=== PATIENT | female | born 1965 | race Caucasian/White ===

== ENCOUNTER 2020-07-17 16:01 | Inpatient (IN) | payer OTHER ==
[~2020-07-17] VITALS: Ht 167.6 cm; Wt 66.2 kg
[2020-07-17 16:46] LABS: BASOPHILS % (AUTO) 0 % (0-1); EOSINOPHILS % (AUTO) 0 % (1-7); LYMPHOCYTES % (AUTO) 19 % (22-44); MEAN CORPUSCULAR HEMOGLOBIN 30.8 pg (27.0-34.8); MEAN CORPUSCULAR HGB CONC 34.2 g/dL (32.4-35.8); MEAN PLATELET VOLUME 9.4 fL (7.4-10.4); MONOCYTES % (AUTO) 12 % (2-9); NEUTROPHILS % (AUTO) 69 % (42-75); PLATELET COUNT 153 x10^3/uL (130-400); RED BLOOD COUNT 5.07 x10^6/uL (3.82-5.3); RED CELL DISTRIBUTION WIDTH 13.6 % (9.6-15.2)
[2020-07-17 16:49] LABS: ALBUMIN 3.2 g/dL (3.4-5.0); ANION GAP 10 mmol/L (5-15); CALCIUM 8.3 mg/dL (8.5-10.1); CHLORIDE 101 mmol/L (98-107)
[2020-07-17 16:52] LABS: MD NO
[2020-07-17 16:53] LABS: ALANINE AMINOTRANSFERASE 36 U/L (12-78); ALKALINE PHOSPHATASE 89 U/L (45-117); BILIRUBIN,TOTAL 0.9 mg/dL (0.2-1.0); CREATININE 0.85 mg/dL (0.55-1.02); TOTAL PROTEIN 7.4 g/dL (6.4-8.2)
[2020-07-17] MEDS ORDERED: ACETAMINOPHEN 500 MG TABLET PO ONE (17:00)
[2020-07-17] MEDS ORDERED: SODIUM CHLORIDE 0.9% 1,000ML IVBOLUS ONE (17:00)
--- NOTE | 2020-07-17 17:22 | NUR ---
DR GARCIA HAS SEEN PATIENT.
[2020-07-17] MEDS ORDERED: ONDANSETRON 2MG/ML, 2ML ONE (17:23)
[2020-07-17] MEDS ORDERED: ESCI10TA10 PO (17:27)
[2020-07-17] MEDS ORDERED: ESCI10TA PO (17:28)
[2020-07-17] MEDS ORDERED: ONDANSETRON 2MG/ML, 2ML IVPush ONE (17:30)
[2020-07-17] MEDS ORDERED: FAMOTIDINE 20 MG/2 ML IV ONE (17:30)
[2020-07-17] MEDS ORDERED: MAALOX/HYOSCYAMINE/LIDOCAINE 45 ML BTL PO ONE (17:30)
--- NOTE | 2020-07-17 17:30 | NUR ---
PT REPORTS HER FRIEND IS POSITIVE FOR COVID, AND SHE HAD A TEST DONE BUT DOES NOT HAVE THE RESULTS BACK. PT REPORTS CENTER ABD PAIN WITH N/V. VS STABLE. CALL LIGHT IN PLACE. WILL CONTINUE TO MONITOR.
[2020-07-17] MEDS ORDERED: FAMOTIDINE 20 MG/2 ML ONE (17:34)
[2020-07-17] MEDS ORDERED: ACETAMINOPHEN 500 MG TABLET ONE ×2 (17:43→17:45)
[2020-07-17] MEDS ORDERED: METOCLOPRAMIDE 5 MG/ML, 2ML ONE (17:59)
[2020-07-17] MEDS ORDERED: DEXAMETHASONE 4 MG TABLET PO ONE (18:00)
[2020-07-17] MEDS ORDERED: METOCLOPRAMIDE 5 MG/ML, 2ML IVPush ONE (18:00)
--- NOTE | 2020-07-17 18:02 | NUR ---
PT STILL HAS SOME NAUSEA. DR GARCIA AWARE. PT GIVEN REGLAN PER
[2020-07-17] MEDS ORDERED: DEXAMETHASONE 4 MG TABLET ONE (18:36)
[2020-07-17] MEDS ORDERED: CEFTRIAXONE PMX 1GM/50ML 50 ML IVPB ONE (19:00)
[2020-07-17] MEDS ORDERED: DOXYCYCLINE 100MG TABLET PO ONE (19:00)
--- NOTE | 2020-07-17 19:04 | NUR ---
REPORT GIVEN TO DWAIN IBARRA
[2020-07-17] MEDS ORDERED: CEFTRIAXONE PMX 1GM/50ML 50 ML ONE (19:06)
[2020-07-17 19:21] LABS: D-DIMER (DIC) 0.78 ug/mlFEU (0.00-0.52)
[2020-07-17 19:23] LABS: C-REACTIVE PROTEIN, QUANT 6.09 mg/dL (0.02-0.49)
[2020-07-17] MEDS ORDERED: DOXYCYCLINE 100MG TABLET ONE (19:29)
--- NOTE | 2020-07-17 19:32 | NUR ---
ABX HUNG AFTER BLOOD CULTURES DRAWN
[2020-07-17] MEDS ORDERED: ONDANSETRON 2MG/ML, 2ML IVPush PRN (20:30)
[2020-07-17] MEDS ORDERED: ENALAPRILAT 1.25 MG/ML, 2ML IVPush PRN (20:30)
[2020-07-17] MEDS ORDERED: DOCUSATE 100 MG CAPSULE PO PRN (20:30)
[2020-07-17] MEDS ORDERED: GUAIFENESIN/DM 200-20MG, 10ML UDC PO PRN (20:30)
--- NOTE | 2020-07-17 21:30 | NUR ---
URINE COLLECTED, PT IN [facility], AWAITING HOSPITAL BED, NO OTHER NEEDS AT THIS TIME
[2020-07-17] MEDS ORDERED: HEPARIN 5,000 UNITS/ML, 1ML ONE (21:48)
[2020-07-17 21:55] LABS: MICROSCOPIC INDICATED
[2020-07-17] MEDS: HEPARIN 5,000 UNITS/ML, 1ML SQ SCH (22:07)
--- NOTE | 2020-07-17 23:35 | NUR ---
PT RESTING IN [facility], ORDERED HOSPITAL BED, PT STATES NO NEEDS AT THIS TIME, VSS
[2020-07-18] MEDS ORDERED: SODIUM CHLORIDE 0.9% 1,000ML IVBOLUS ONE (00:30)
--- NOTE | 2020-07-18 00:45 | NUR ---
PT HAVING HYPOTENTION, SEE VITALS DOCUMENTATION, CHECKED MULTIPLE TIMES, PT DENIES LIGHTHEADEDNESS/DIZZINESS, AND STATES FEELING JUST TIRED. DR. DELGADO NOTIFIED, PT MEETS SEPISI CRITERIA. PT GIVEN MONOTHERAPY ABX AFTER BLOOD CULTURES AT 1933. HYPOTENTION FIRST FOUND AT 0014, PER MD GIVE BOLUS PER SEPSIS CRIETERIA BUT SUBRACT BOLUS GIVEN EARLIER. PT TO RECIEVE 2463 ML TOTAL MINUS 1,000 ML GIVEN EARLIER. ORDER FOR 1,500 ML BOLUS PLACED.
--- NOTE | 2020-07-18 01:59 | NUR ---
PT PLACED ON HOSPITAL BED, BOLUS COMPLETED, BLOOD PRESSURE CHARTED. NO OTHER NEEDS AT THIS TIME
--- NOTE | 2020-07-18 03:40 | NUR ---
PT SLEEPING, RESPIRATIONS EVEN/UNLABORED, MONITORS IN PLACE, CALL LIGHT WITHIN REACH
--- NOTE | 2020-07-18 04:54 | NUR ---
PT SLEEPING, RESP EVEN/UNLABORED, MONITORS IN PLACE. CALL LIGHT WITHIN REACH
[2020-07-18 05:31] LABS: BASOPHILS % (AUTO) 0 % (0-1); EOSINOPHILS % (AUTO) 0 % (1-7); LYMPHOCYTES % (AUTO) 17 % (22-44); MEAN CORPUSCULAR HEMOGLOBIN 30.5 pg (27.0-34.8); MEAN CORPUSCULAR HGB CONC 33.6 g/dL (32.4-35.8); MEAN PLATELET VOLUME 9.3 fL (7.4-10.4); MONOCYTES % (AUTO) 9 % (2-9); NEUTROPHILS % (AUTO) 74 % (42-75); PLATELET COUNT 163 x10^3/uL (130-400); RED BLOOD COUNT 5.04 x10^6/uL (3.82-5.3); RED CELL DISTRIBUTION WIDTH 13.9 % (9.6-15.2)
[2020-07-18 05:32] LABS: MD NO
[2020-07-18 05:46] LABS: ALBUMIN 2.7 g/dL (3.4-5.0); ANION GAP 6 mmol/L (5-15); CALCIUM 7.9 mg/dL (8.5-10.1); CHLORIDE 110 mmol/L (98-107)
[2020-07-18 05:50] LABS: ALANINE AMINOTRANSFERASE 32 U/L (12-78); ALKALINE PHOSPHATASE 79 U/L (45-117); BILIRUBIN,TOTAL 0.7 mg/dL (0.2-1.0); CREATININE 0.78 mg/dL (0.55-1.02); TOTAL PROTEIN 6.9 g/dL (6.4-8.2)
[2020-07-18] MEDS ORDERED: HEPARIN 5,000 UNITS/ML, 1ML ONE ×2 (06:39→14:19)
[2020-07-18] MEDS: HEPARIN 5,000 UNITS/ML, 1ML SQ SCH ×3 (06:44→22:26)
--- NOTE | 2020-07-18 07:09 | NUR ---
report given to yvonne cope
[2020-07-18] MEDS ORDERED: DEXAMETHASONE 4 MG TABLET ONE (08:29)
[2020-07-18] MEDS ORDERED: AZITHROMYCIN 250 MG TABLET ONE (08:29)
[2020-07-18] MEDS: DEXAMETHASONE 4 MG TABLET PO SCH (08:36)
[2020-07-18] MEDS: AZITHROMYCIN 250 MG TABLET PO SCH (08:36)
[2020-07-18] MEDS ORDERED: DEXAMETHASONE 1 MG TABLET PO SCH (09:00)
--- NOTE | 2020-07-18 09:00 | NUR ---
PT DELIVERED BREAKFAST AND MEDICATED PER OCT. PT STATES SHE FEELS BETTER THIS AM AND HAS AN APPETITTE. PT DENIES NAUSEA OR STOMACH DISCOMFORT.
[2020-07-18] MEDS: ESCITALOPRAM 10MG TABLET PO SCH (09:22)
[2020-07-18] MEDS ORDERED: ZINC SULFATE 220 MG CAPSULE ONE (10:54)
[2020-07-18] MEDS ORDERED: CHOLECALCIFEROL 1,000 UNIT TABLET ONE (10:54)
[2020-07-18] MEDS ORDERED: THIAMINE 100MG TABLET ONE (10:54)
[2020-07-18] MEDS: THIAMINE 100MG TABLET PO SCH (10:57)
[2020-07-18] MEDS: CHOLECALCIFEROL 1,000 UNIT TABLET PO SCH (10:57)
[2020-07-18] MEDS: ZINC SULFATE 220 MG CAPSULE PO SCH (10:57)
--- NOTE | 2020-07-18 12:31 | NUR ---
PT LUNCH DEIVERED. PT RESTING ON SIDE ON HOSPITAL BED, WATCHING PHONE. VSS.
[2020-07-18] MEDS ORDERED: IBUPROFEN 600 MG TABLET ONE (14:29)
[2020-07-18] MEDS: IBUPROFEN 600 MG TABLET PO PRN ×2 (14:31→22:26)
--- NOTE | 2020-07-18 14:31 | NUR ---
PT MEDICATED PER OCT FOR HEADACHE, 11/17.
--- NOTE | 2020-07-18 14:54 | NUR ---
REPORT GIVEN TO DWAIN POSADA
[2020-07-18] MEDS: CEFTRIAXONE PMX 1GM/50ML 50 ML IV SCH (20:06)
[2020-07-18] MEDS: ACETAMINOPHEN 325 MG TABLET PO PRN (20:07)
[2020-07-18] MEDS: FAMOTIDINE 20 MG TABLET PO SCH (20:07)
[2020-07-18 20:34] VITALS: BP 119/77
[2020-07-19 00:20] VITALS: BP 107/65
[2020-07-19] MEDS: ACETAMINOPHEN 325 MG TABLET PO PRN (02:41)
[2020-07-19] MEDS: HEPARIN 5,000 UNITS/ML, 1ML SQ SCH ×3 (05:56→22:08)
[2020-07-19 07:16] VITALS: BP 95/57
[2020-07-19] MEDS: FAMOTIDINE 20 MG TABLET PO SCH ×2 (08:24→20:50)
[2020-07-19] MEDS: DEXAMETHASONE 4 MG TABLET PO SCH (08:25)
[2020-07-19] MEDS: ZINC SULFATE 220 MG CAPSULE PO SCH (08:25)
[2020-07-19] MEDS: ESCITALOPRAM 10MG TABLET PO SCH (08:25)
[2020-07-19] MEDS: AZITHROMYCIN 250 MG TABLET PO SCH (08:25)
[2020-07-19] MEDS: CHOLECALCIFEROL 1,000 UNIT TABLET PO SCH (08:25)
[2020-07-19] MEDS: THIAMINE 100MG TABLET PO SCH (08:25)
[2020-07-19 11:57] VITALS: BP 121/81
[2020-07-19] MEDS ORDERED: LEVO50TA5 PO (14:57)
[2020-07-19] MEDS ORDERED: ATOR10TA9 PO (14:57)
[2020-07-19 19:50] VITALS: BP 109/71
[2020-07-19] MEDS: CEFTRIAXONE PMX 1GM/50ML 50 ML IV SCH (20:50)
[2020-07-20 01:33] VITALS: BP 114/64
[2020-07-20] MEDS: HEPARIN 5,000 UNITS/ML, 1ML SQ SCH (06:28)
[2020-07-20 07:19] VITALS: BP 108/67
[2020-07-20] MEDS: FAMOTIDINE 20 MG TABLET PO SCH (07:35)
[2020-07-20] MEDS: CHOLECALCIFEROL 1,000 UNIT TABLET PO SCH (07:35)
[2020-07-20] MEDS: THIAMINE 100MG TABLET PO SCH (07:35)
[2020-07-20] MEDS: AZITHROMYCIN 250 MG TABLET PO SCH (07:35)
[2020-07-20] MEDS: ESCITALOPRAM 10MG TABLET PO SCH (07:35)
[2020-07-20] MEDS: DEXAMETHASONE 4 MG TABLET PO SCH (07:35)
[2020-07-20] MEDS: ZINC SULFATE 220 MG CAPSULE PO SCH (07:35)
[2020-07-20] MEDS ORDERED: DEXA4TAB66 PO (08:33)
[2020-07-20] MEDS ORDERED: FAMO20TA7 PO (08:33)
== END 2020-07-20 11:58 | disposition home or self-care (01) | DRG 177 ==
LOC: ED 20:21 → EDIP 20:32 → 4WST 07-18 15:29
PROVIDERS: ADMIT Family Medicine; ATTEND Hospitalist
DX: U07.1 COVID-19 (principal); J96.01 Acute respiratory failure with hypoxia; J12.89 Other viral pneumonia; R65.10 Systemic inflammatory response syndrome (SIRS) of non-infectious origin without acute organ dysfunction; F32.9 Major depressive disorder, single episode, unspecified; K29.70 Gastritis, unspecified, without bleeding; Z90.49 Acquired absence of other specified parts of digestive tract
CPT/HCPCS: 36415; 71045; 80053; 81001; 82728; 83605; 83615; 83690; 84145; 85025; 85049; 85379; 85384; 85610; 85730; 86140; 87040; 87086; 93005; 96374; 96375; 99285; G0378; J0696; J1644; J2405; J2765; J7030; U0003

== ENCOUNTER → 2021-03-06 | Outpatient (CLI) | payer OTHER ==
[~2021-03-06] MED LIST: ATOR10TA9 PO; DEXA4TAB66 PO; ESCI10TA10 PO; ESCI10TA97 PO; FAMO20TA7 PO; LEVO50TA5 PO
== END | disposition home or self-care (01) ==
LOC: CFH 14:29
PROVIDERS: ATTEND Family Medicine
DX: Z12.31 Encounter for screening mammogram for malignant neoplasm of breast (principal)
CPT/HCPCS: 77063; 77067